=== PATIENT | male | born 1955 | race Caucasian/White ===

== ENCOUNTER 2022-11-22 11:41 | Inpatient (IN) | payer MEDICARE, OTHER ==
[2022-11-22 12:41] LABS: Hemoglobin 9.4 g/dL (13.5-17.5); Mean Corpuscular HGB CONC 34.7 g/dL (32.0-36.0); Mean Corpuscular Hemoglobin 35.6 pg (27.0-33.0); Mean Corpuscular Volume 102.7 fl (81.2-95.1); Mean Platelet Volume 11.3 fl (7.4-10.4); Platelet Count 95 10x3/uL (150-450); RBC Distribution Width 14.6 % (11.5-14.5); Red Blood Cell (RBC) Count 2.64 10x6/uL (4.32-5.72); White Blood Cell (WBC) Count 5.1 10x3/uL (3.5-10.5)
[2022-11-22 12:52] LABS: ALT (SGPT) 10 U/L (8-55); AST (SGOT) 18 U/L (5-34); Albumin 2.8 g/dL (3.4-4.8); Alkaline Phosphatase 49 U/L (40-110); Anion Gap 24 mmol/L (10-20); BUN (Urea Nitrogen) 15 mg/dL (8.4-25.7); Bilirubin, Total 0.6 mg/dL (0.2-1.2); Calc. Creatinine Clearance 0 mL/min (70-130); Calcium 7.7 mg/dL (7.8-10.44); Carbon Dioxide 21 mmol/L (23-31); Chloride 88 mmol/L (98-107); Estimated GFR 94; Globulin 2.9 g/dL (2.4-3.5); Glucose 105 mg/dL (80-115); Lipase 48 U/L (8-78); Protein, Total 5.7 g/dL (5.8-8.1); Sodium 130 mmol/L (136-145)
[2022-11-22 12:55] LABS: Acetaminophen Less than 10.0 mcg/mL (10.0-30.0); Alcohol Less than 10 mg/dL (Less than 10); Salicylate Less than 8.0 mg/dL (15.0-30.0)
[2022-11-22 13:03] LABS: MDiff Complete? YES
[2022-11-22 13:08] LABS: Band 15 % (5-11); Lymphocytes 7 % (21-51); Monocytes 2 % (0-10); Neutrophil 76 % (42-75)
[2022-11-22 13:09] LABS: Platelet Morphology Comment Appears Decreased
[2022-11-22 13:14] LABS: Macrocytosis SLIGHT = 6-15 cells (100X) (0-5/hpf)
[2022-11-22 13:15] LABS: Magnesium 0.9 mg/dL (1.6-2.6); Potassium 2.6 mmol/L (3.5-5.1)
[2022-11-22] MEDS ORDERED: Magnesium 2 GM/50 ML BAG (IN WATER) ONE (13:29)
[2022-11-22] MEDS ORDERED: Potassium Chloride 20 MEQ TAB ONE (13:29)
[2022-11-22] MEDS ORDERED: Lorazepam 2 MG/ML VIAL ONE (13:59)
[2022-11-22 15:19] LABS: Lactic Acid 2.2 mmol/L (0.5-2.2)
[2022-11-22] MEDS ORDERED: Lorazepam 2 MG/ML VIAL IM PRN (15:59)
[2022-11-22] MEDS ORDERED: Acetaminophen 650 MG Suppository PR PRN (15:59)
[2022-11-22] MEDS ORDERED: Lorazepam 1 MG TAB PO PRN (15:59)
[2022-11-22] MEDS ORDERED: Ondansetron PF 4 MG/2 ML Vial IVP PRN (15:59)
[2022-11-22] MEDS ORDERED: Electrolyte Replacement Protocol 1 EACH FS SCH (16:00)
[2022-11-22 16:32] VITALS: BMI 28.9
[2022-11-22 16:51] LABS: Bilirubin 1+ (Negative); Blood, Urine 150 (Negative); Clarity Cloudy (Clear); Glucose, Urine (Dipstick) Normal (Negative); Ketone, Urine 150 mg/dL (Negative); Leukocyte 500 (Negative); Nitrite Negative (Negative); Protein, Urine (Dipstick) 100 mg/dl (Neg-Trace); Specific Gravity, Urine 1.015 (1.005-1.030)
[2022-11-22 16:51] LABS: Troponin I 0.011 ng/mL (< 0.028)
[2022-11-22 17:01] LABS: Bacteria/HPF 3+ HPF (None Seen); Mucous/LPF 1+ LPF (<2+); Squamous Epithelial 0-3 HPF (0-3); WBC/HPF Greater Than 50 HPF (0-3)
[2022-11-22 17:55] LABS: Phosphorus 1.4 mg/dL (2.3-4.7)
[2022-11-22 18:01] LABS: Syphilis Antibody Nonreactive (Nonreactive); Syphilis Antibody Index 0.11 S/CO (<1.00 Non-Reactive)
[2022-11-22] MEDS ORDERED: Lorazepam 1 MG TAB ONE ×2 (18:37→20:23)
[2022-11-22] MEDS ORDERED: Thiamine HCl 200 MG/2 ML VIAL ONE ×2 (18:38→20:23)
[2022-11-22 18:57] LABS: Anion Gap 20 mmol/L (10-20); BUN (Urea Nitrogen) 13 mg/dL (8.4-25.7); Calc. Creatinine Clearance 110 mL/min (70-130); Calcium 7.8 mg/dL (7.8-10.44); Carbon Dioxide 22 mmol/L (23-31); Chloride 92 mmol/L (98-107); Estimated GFR 96; Glucose 120 mg/dL (80-115); Magnesium 1.7 mg/dL (1.6-2.6); Potassium 2.8 mmol/L (3.5-5.1); Sodium 131 mmol/L (136-145)
[2022-11-22 19:04] LABS: Troponin I Less than 0.010 ng/mL (< 0.028)
[2022-11-22] MEDS ORDERED: ADMIXTURE FEE IVPB SCH (20:00)
[2022-11-22] MEDS ORDERED: SODIUM CHLORIDE IVPB SCH (20:00)
[2022-11-22] MEDS ORDERED: SODIUM PHOSPHATE IVPB SCH (20:00)
[2022-11-22] MEDS ORDERED: Apixaban 5 MG TAB ONE (20:20)
[2022-11-22] MEDS ORDERED: Folic Acid 1 MG TAB PO SCH (21:00)
[2022-11-22] MEDS ORDERED: Multivit, Therapeutic 1 TAB PO SCH (21:00)
[2022-11-22] MEDS ORDERED: Magnesium 2 GM/50 ML(in water) 2 GM in Premix Bag 1 BAG IVPB SCH (21:00)
[2022-11-22] MEDS: Thiamine HCl 200 MG/2 ML VIAL SLOW IVP SCH (21:08)
[2022-11-22] MEDS: Lorazepam 1 MG TAB PO SCH (21:08)
[2022-11-22] MEDS: Apixaban 5 MG TAB PO SCH (21:27)
[2022-11-22] MEDS: Potassium Chloride 20 MEQ TAB PO SCH (22:44)
[2022-11-23] MEDS: Lorazepam 1 MG TAB PO SCH ×5 (05:53→23:12)
[2022-11-23 05:57] LABS: %Basophils 0.7 % (0.0-2.0); %Eosinophils 0.7 % (0.0-6.0); %Lymphocytes 24.8 % (18.0-47.0); %Monocytes 1.4 % (0.0-10.0); %Neutrophils 71.7 % (40.0-75.0); Hemoglobin 8.1 g/dL (13.5-17.5); Mean Corpuscular HGB CONC 34.3 g/dL (32.0-36.0); Mean Corpuscular Hemoglobin 35.7 pg (27.0-33.0); Mean Platelet Volume 11.5 fl (7.4-10.4); Platelet Count 81 10x3/uL (150-450); RBC Distribution Width 14.7 % (11.5-14.5); Red Blood Cell (RBC) Count 2.27 10x6/uL (4.32-5.72); White Blood Cell (WBC) Count 2.8 10x3/uL (3.5-10.5)
[2022-11-23] MEDS ORDERED: Magnesium 2 GM/50 ML(in water) 2 GM in Premix Bag 1 BAG IVPB SCH ×2 (06:00→09:15)
[2022-11-23] MEDS: Potassium Chloride 20 MEQ TAB PO SCH ×2 (06:08→17:27)
[2022-11-23 07:33] LABS: Anion Gap 17 mmol/L (10-20); BUN (Urea Nitrogen) 12 mg/dL (8.4-25.7); Calc. Creatinine Clearance 122 mL/min (70-130); Calcium 7.7 mg/dL (7.8-10.44); Carbon Dioxide 26 mmol/L (23-31); Chloride 94 mmol/L (98-107); Estimated GFR 99; Glucose 106 mg/dL (80-115); Potassium 2.9 mmol/L (3.5-5.1); Sodium 134 mmol/L (136-145)
[2022-11-23 07:34] LABS: Magnesium 1.5 mg/dL (1.6-2.6)
[2022-11-23] MEDS: Folic Acid 1 MG TAB PO SCH (08:44)
[2022-11-23] MEDS: Apixaban 5 MG TAB PO SCH ×2 (08:44→23:12)
[2022-11-23] MEDS: Multivit, Therapeutic 1 TAB PO SCH (08:44)
[2022-11-23] MEDS ORDERED: Potassium Chloride 20 MEQ TAB PO SCH ×2 (09:15→21:00)
[2022-11-23] MEDS ORDERED: Sodium Phosphate 30 MMOL in Sodium Chloride 0.9% 250 ML 250 ML IVPB SCH (09:15)
[2022-11-23 09:23] LABS: Phosphorus 2.3 mg/dL (2.3-4.7)
[2022-11-23] MEDS: cefTRIAXone\\ROCEPHIN 2 GM in Sodium Chloride 0.9% 100 ML IVPB SCH (09:43)
[2022-11-23] MEDS ORDERED: Lorazepam 1 MG TAB PO PRN (16:00)
[2022-11-23 16:14] LABS: Anion Gap 15 mmol/L (10-20); BUN (Urea Nitrogen) 12 mg/dL (8.4-25.7); Calc. Creatinine Clearance 125 mL/min (70-130); Calcium 7.7 mg/dL (7.8-10.44); Carbon Dioxide 28 mmol/L (23-31); Chloride 96 mmol/L (98-107); Estimated GFR 100; Glucose 110 mg/dL (80-115); Magnesium 2.6 mg/dL (1.6-2.6); Phosphorus 3.5 mg/dL (2.3-4.7); Potassium 2.9 mmol/L (3.5-5.1); Sodium 136 mmol/L (136-145)
[2022-11-23] MEDS: Thiamine HCl 200 MG/2 ML VIAL SLOW IVP SCH (17:28)
[2022-11-23 22:51] LABS: Anion Gap 16 mmol/L (10-20); BUN (Urea Nitrogen) 11 mg/dL (8.4-25.7); Calc. Creatinine Clearance 127 mL/min (70-130); Calcium 7.7 mg/dL (7.8-10.44); Carbon Dioxide 25 mmol/L (23-31); Chloride 98 mmol/L (98-107); Estimated GFR 100; Glucose 97 mg/dL (80-115); Sodium 136 mmol/L (136-145)
[2022-11-23] MEDS ORDERED: Lactated Ringer's 1,000 ML IV SCH (23:45)
[2022-11-24 03:52] LABS: #Monocytes 0.1 10x3/uL (0.0-1.1); #Neutrophils 1.6 10x3/uL (1.5-8.4); %Basophils 0.5 % (0.0-2.0); %Lymphocytes 17.5 % (18.0-47.0); %Monocytes 2.9 % (0.0-10.0); %Neutrophils 76.6 % (40.0-75.0); Hemoglobin 7.7 g/dL (13.5-17.5); Mean Corpuscular HGB CONC 34.5 g/dL (32.0-36.0); Mean Corpuscular Hemoglobin 36.3 pg (27.0-33.0); Mean Corpuscular Volume 105.2 fl (81.2-95.1); Mean Platelet Volume 11.7 fl (7.4-10.4); Platelet Count 78 10x3/uL (150-450); Red Blood Cell (RBC) Count 2.12 10x6/uL (4.32-5.72); White Blood Cell (WBC) Count 2.1 10x3/uL (3.5-10.5)
[2022-11-24 04:05] LABS: ALT (SGPT) 11 U/L (8-55); AST (SGOT) 24 U/L (5-34); Albumin 2.2 g/dL (3.4-4.8); Alkaline Phosphatase 51 U/L (40-110); Anion Gap 15 mmol/L (10-20); BUN (Urea Nitrogen) 10 mg/dL (8.4-25.7); Bilirubin, Total 0.2 mg/dL (0.2-1.2); Calc. Creatinine Clearance 123 mL/min (70-130); Calcium 7.5 mg/dL (7.8-10.44); Carbon Dioxide 24 mmol/L (23-31); Chloride 100 mmol/L (98-107); Estimated GFR 100; Globulin 2.6 g/dL (2.4-3.5); Glucose 123 mg/dL (80-115); Potassium 3.3 mmol/L (3.5-5.1); Protein, Total 4.8 g/dL (5.8-8.1); Sodium 136 mmol/L (136-145)
[2022-11-24] MEDS: Lorazepam 1 MG TAB PO SCH ×2 (06:17→12:06)
[2022-11-24] MEDS: Folic Acid 1 MG TAB PO SCH (09:09)
[2022-11-24] MEDS: Multivit, Therapeutic 1 TAB PO SCH (09:09)
[2022-11-24] MEDS: Potassium Chloride 20 MEQ TAB PO SCH ×2 (09:09→17:45)
[2022-11-24] MEDS: Apixaban 5 MG TAB PO SCH ×2 (09:09→20:38)
[2022-11-24] MEDS ORDERED: Sodium Chloride 0.9% 100 ML ONE (10:02)
[2022-11-24] MEDS: cefTRIAXone\\ROCEPHIN 2 GM in Sodium Chloride 0.9% 100 ML IVPB SCH (10:05)
[2022-11-24 10:13] LABS: Magnesium 1.8 mg/dL (1.6-2.6); Phosphorus 2.1 mg/dL (2.3-4.7)
[2022-11-24] MEDS ORDERED: Sodium Phosphate 15 MMOL in Sodium Chloride 0.9% 250 ML 250 ML IVPB SCH (11:15)
[2022-11-24] MEDS ORDERED: Magnesium 2 GM/50 ML(in water) 2 GM in Premix Bag 1 BAG IVPB SCH (14:00)
[2022-11-24 14:22] LABS: Potassium 3.4 mmol/L (3.5-5.1)
[2022-11-24] MEDS ORDERED: Lorazepam 1 MG TAB PO PRN (16:00)
[2022-11-24] MEDS: Thiamine HCl 200 MG/2 ML VIAL SLOW IVP SCH (17:47)
[2022-11-24] MEDS: Lorazepam 0.5 MG TAB PO SCH (18:00)
[2022-11-24] MEDS: Metoprolol Tartrate 25 MG TAB PO SCH (20:38)
[2022-11-25] MEDS: Lorazepam 0.5 MG TAB PO SCH ×3 (02:02→12:49)
[2022-11-25 03:43] LABS: Hemoglobin 7.6 g/dL (13.5-17.5); Mean Corpuscular HGB CONC 33.3 g/dL (32.0-36.0); Mean Corpuscular Volume 108.1 fl (81.2-95.1); Mean Platelet Volume 10.9 fl (7.4-10.4); Platelet Count 67 10x3/uL (150-450); RBC Distribution Width 15.3 % (11.5-14.5); Red Blood Cell (RBC) Count 2.11 10x6/uL (4.32-5.72); White Blood Cell (WBC) Count 1.9 10x3/uL (3.5-10.5)
[2022-11-25 03:45] LABS: MDiff Complete? YES
[2022-11-25 03:56] LABS: ALT (SGPT) 13 U/L (8-55); AST (SGOT) 44 U/L (5-34); Albumin 2.3 g/dL (3.4-4.8); Alkaline Phosphatase 51 U/L (40-110); Anion Gap 12 mmol/L (10-20); BUN (Urea Nitrogen) 8 mg/dL (8.4-25.7); Bilirubin, Total 0.2 mg/dL (0.2-1.2); Calc. Creatinine Clearance 139 mL/min (70-130); Calcium 7.7 mg/dL (7.8-10.44); Carbon Dioxide 26 mmol/L (23-31); Chloride 103 mmol/L (98-107); Estimated GFR 103; Globulin 2.7 g/dL (2.4-3.5); Glucose 100 mg/dL (80-115); Magnesium 1.9 mg/dL (1.6-2.6); Potassium 4.3 mmol/L (3.5-5.1); Sodium 137 mmol/L (136-145)
[2022-11-25 04:40] LABS: Band 3 % (5-11); Eosinophils 1 % (0-10); Lymphocytes 53 % (21-51); Monocytes 1 % (0-10); Neutrophil 42 % (42-75)
[2022-11-25 04:44] LABS: Hypochromia SLIGHT = 6-15 cells (100X) (0-5/hpf); Large Platelets SLIGHT; Macrocytosis SLIGHT = 6-15 cells (100X) (0-5/hpf); Ovalocytes SLIGHT = 2-5 cells (100X) (0-1/hpf); Platelet Morphology Comment Appears Decreased
[2022-11-25] MEDS ORDERED: Magnesium 2 GM/50 ML(in water) 2 GM in Premix Bag 1 BAG IVPB SCH (08:00)
[2022-11-25] MEDS: Apixaban 5 MG TAB PO SCH ×2 (09:28→20:48)
[2022-11-25] MEDS: Magnesium Oxide 400 MG TAB PO SCH (09:28)
[2022-11-25] MEDS: Metoprolol Tartrate 25 MG TAB PO SCH ×2 (09:28→20:48)
[2022-11-25] MEDS: Multivit, Therapeutic 1 TAB PO SCH (09:28)
[2022-11-25] MEDS: cefTRIAXone\\ROCEPHIN 2 GM in Sodium Chloride 0.9% 100 ML IVPB SCH (09:29)
[2022-11-25] MEDS: Folic Acid 1 MG TAB PO SCH (09:29)
[2022-11-25 11:42] LABS: Phosphorus 1.7 mg/dL (2.3-4.7)
[2022-11-25] MEDS: PHOS-NAK 1 PKT PACK PO SCH ×2 (12:49→18:03)
[2022-11-25] MEDS: Thiamine 100 MG TAB PO SCH (18:02)
[2022-11-26 04:55] LABS: Hemoglobin 7.9 g/dL (13.5-17.5); Mean Corpuscular HGB CONC 33.1 g/dL (32.0-36.0); Mean Corpuscular Hemoglobin 35.4 pg (27.0-33.0); Mean Corpuscular Volume 107.2 fl (81.2-95.1); Platelet Count 76 10x3/uL (150-450); RBC Distribution Width 15.3 % (11.5-14.5); Red Blood Cell (RBC) Count 2.23 10x6/uL (4.32-5.72); White Blood Cell (WBC) Count 2.2 10x3/uL (3.5-10.5)
[2022-11-26 05:06] LABS: ALT (SGPT) 23 U/L (8-55); AST (SGOT) 74 U/L (5-34); Albumin 2.3 g/dL (3.4-4.8); Alkaline Phosphatase 51 U/L (40-110); Anion Gap 10 mmol/L (10-20); BUN (Urea Nitrogen) 5 mg/dL (8.4-25.7); Bilirubin, Total 0.3 mg/dL (0.2-1.2); Calc. Creatinine Clearance 143 mL/min (70-130); Calcium 7.9 mg/dL (7.8-10.44); Carbon Dioxide 28 mmol/L (23-31); Chloride 102 mmol/L (98-107); Estimated GFR 104; Globulin 2.8 g/dL (2.4-3.5); Glucose 98 mg/dL (80-115); Magnesium 1.7 mg/dL (1.6-2.6); Phosphorus 1.7 mg/dL (2.3-4.7); Potassium 4.8 mmol/L (3.5-5.1); Protein, Total 5.1 g/dL (5.8-8.1); Sodium 135 mmol/L (136-145)
[2022-11-26 05:56] LABS: Eosinophils 7 % (0-10); Lymphocytes 35 % (21-51); Monocytes 9 % (0-10); Reactive Lymphocytes 1 % (0-10)
[2022-11-26 05:59] LABS: Microcytosis SLIGHT = 6-15 cells (100X) (0-5/hpf)
[2022-11-26 06:00] LABS: Macrocytosis SLIGHT = 6-15 cells (100X) (0-5/hpf); Ovalocytes SLIGHT = 2-5 cells (100X) (0-1/hpf); Platelet Morphology Comment Appears Decreased
[2022-11-26 06:17] LABS: MDiff Complete? YES; Neutrophil 48 % (42-75)
[2022-11-26] MEDS ORDERED: Magnesium 2 GM/50 ML(in water) 2 GM in Premix Bag 1 BAG IVPB SCH ×2 (08:00→17:00)
[2022-11-26] MEDS ORDERED: PHOS-NAK 1 PKT PACK PO SCH (08:00)
[2022-11-26] MEDS ORDERED: Sodium Phosphate 30 MMOL in Sodium Chloride 0.9% 250 ML 250 ML IVPB SCH (10:00)
[2022-11-26] MEDS: Multivit, Therapeutic 1 TAB PO SCH (10:35)
[2022-11-26] MEDS: Apixaban 5 MG TAB PO SCH ×2 (10:35→20:58)
[2022-11-26] MEDS: Folic Acid 1 MG TAB PO SCH (10:35)
[2022-11-26] MEDS: Metoprolol Tartrate 25 MG TAB PO SCH ×2 (10:36→20:58)
[2022-11-26] MEDS: cefTRIAXone\\ROCEPHIN 2 GM in Sodium Chloride 0.9% 100 ML IVPB SCH (10:38)
[2022-11-26] MEDS: Magnesium Oxide 400 MG TAB PO SCH (10:44)
[2022-11-26] MEDS: Thiamine 100 MG TAB PO SCH (19:25)
[2022-11-27 04:44] LABS: Mean Corpuscular HGB CONC 32.9 g/dL (32.0-36.0); Mean Corpuscular Hemoglobin 35.1 pg (27.0-33.0); Mean Corpuscular Volume 106.6 fl (81.2-95.1); Mean Platelet Volume 11.8 fl (7.4-10.4); Platelet Count 92 10x3/uL (150-450); RBC Distribution Width 15.6 % (11.5-14.5); Red Blood Cell (RBC) Count 2.28 10x6/uL (4.32-5.72); White Blood Cell (WBC) Count 2.5 10x3/uL (3.5-10.5)
[2022-11-27 04:50] LABS: MDiff Complete? YES
[2022-11-27 04:56] LABS: ALT (SGPT) 30 U/L (8-55); AST (SGOT) 77 U/L (5-34); Albumin 2.4 g/dL (3.4-4.8); Alkaline Phosphatase 54 U/L (40-110); Anion Gap 15 mmol/L (10-20); BUN (Urea Nitrogen) 6 mg/dL (8.4-25.7); Bilirubin, Total 0.3 mg/dL (0.2-1.2); Calc. Creatinine Clearance 131 mL/min (70-130); Carbon Dioxide 23 mmol/L (23-31); Chloride 102 mmol/L (98-107); Estimated GFR 101; Globulin 2.8 g/dL (2.4-3.5); Glucose 98 mg/dL (80-115); Potassium 4.3 mmol/L (3.5-5.1); Protein, Total 5.2 g/dL (5.8-8.1); Sodium 136 mmol/L (136-145)
[2022-11-27 05:54] LABS: Eosinophils 1 % (0-10); Lymphocytes 45 % (21-51); Monocytes 13 % (0-10); Neutrophil 41 % (42-75)
[2022-11-27 05:58] LABS: Anisocytosis SLIGHT = 6-15 cells (100X) (0-5/hpf); Hypochromia SLIGHT = 6-15 cells (100X) (0-5/hpf); Macrocytosis SLIGHT = 6-15 cells (100X) (0-5/hpf); Microcytosis SLIGHT = 6-15 cells (100X) (0-5/hpf); Polychromasia SLIGHT = 2-3 cells (100X) (0-2/hpf)
[2022-11-27 06:01] LABS: Platelet Clumps SLIGHT; Platelet Morphology Comment Appears Decreased
[2022-11-27] MEDS ORDERED: Magnesium 2 GM/50 ML(in water) 2 GM in Premix Bag 1 BAG IVPB SCH ×2 (08:00→21:00)
[2022-11-27] MEDS: Thiamine 100 MG TAB PO SCH (08:58)
[2022-11-27] MEDS: cefTRIAXone\\ROCEPHIN 2 GM in Sodium Chloride 0.9% 100 ML IVPB SCH (08:58)
[2022-11-27] MEDS: Multivit, Therapeutic 1 TAB PO SCH (08:58)
[2022-11-27] MEDS: Metoprolol Tartrate 25 MG TAB PO SCH ×2 (08:59→21:25)
[2022-11-27] MEDS: Folic Acid 1 MG TAB PO SCH (08:59)
[2022-11-27] MEDS: Apixaban 5 MG TAB PO SCH ×2 (08:59→21:25)
[2022-11-27] MEDS: Magnesium Oxide 400 MG TAB PO SCH (10:30)
[2022-11-27 15:36] LABS: Magnesium 1.8 mg/dL (1.6-2.6); Phosphorus 3.8 mg/dL (2.3-4.7)
[2022-11-28 04:02] LABS: #Eosinphils 0.1 10x3/uL (0.0-0.5); #Monocytes 0.3 10x3/uL (0.0-1.1); #Neutrophils 1.2 10x3/uL (1.5-8.4); %Basophils 1.4 % (0.0-2.0); %Eosinophils 2.5 % (0.0-6.0); %Monocytes 9.4 % (0.0-10.0); %Neutrophils 42.3 % (40.0-75.0); Mean Corpuscular HGB CONC 32.6 g/dL (32.0-36.0); Mean Corpuscular Volume 107.4 fl (81.2-95.1); Mean Platelet Volume 11.4 fl (7.4-10.4); Platelet Count 116 10x3/uL (150-450); RBC Distribution Width 15.7 % (11.5-14.5); Red Blood Cell (RBC) Count 2.57 10x6/uL (4.32-5.72); White Blood Cell (WBC) Count 2.8 10x3/uL (3.5-10.5)
[2022-11-28 04:11] LABS: ALT (SGPT) 34 U/L (8-55); AST (SGOT) 80 U/L (5-34); Albumin 2.7 g/dL (3.4-4.8); Alkaline Phosphatase 54 U/L (40-110); Anion Gap 14 mmol/L (10-20); BUN (Urea Nitrogen) 6 mg/dL (8.4-25.7); Bilirubin, Total 0.3 mg/dL (0.2-1.2); Calc. Creatinine Clearance 119 mL/min (70-130); Calcium 8.6 mg/dL (7.8-10.44); Carbon Dioxide 24 mmol/L (23-31); Chloride 101 mmol/L (98-107); Estimated GFR 98; Glucose 101 mg/dL (80-115); Potassium 4.8 mmol/L (3.5-5.1); Protein, Total 5.7 g/dL (5.8-8.1); Sodium 134 mmol/L (136-145)
[2022-11-28 04:25] LABS: Anisocytosis SLIGHT = 6-15 cells (100X) (0-5/hpf); Hypochromia SLIGHT = 6-15 cells (100X) (0-5/hpf); Macrocytosis SLIGHT = 6-15 cells (100X) (0-5/hpf)
[2022-11-28 04:26] LABS: Platelet Morphology Comment Appears Decreased
[2022-11-28] MEDS: Metoprolol Tartrate 25 MG TAB PO SCH ×2 (07:58→21:42)
[2022-11-28] MEDS: cefTRIAXone\\ROCEPHIN 2 GM in Sodium Chloride 0.9% 100 ML IVPB SCH (07:58)
[2022-11-28] MEDS: Multivit, Therapeutic 1 TAB PO SCH (07:58)
[2022-11-28] MEDS: Magnesium Oxide 400 MG TAB PO SCH (07:59)
[2022-11-28] MEDS: Apixaban 5 MG TAB PO SCH ×2 (07:59→21:42)
[2022-11-28] MEDS: Thiamine 100 MG TAB PO SCH (07:59)
[2022-11-28] MEDS: Lorazepam 0.5 MG TAB PO PRN (07:59)
[2022-11-28] MEDS: Folic Acid 1 MG TAB PO SCH (07:59)
[2022-11-28 08:51] LABS: Magnesium 2.1 mg/dL (1.6-2.6)
[2022-11-28 08:55] LABS: Iron 69 ug/dL (65-175); Iron Binding Capacity, Total 186 mcg/dL (261-462)
[2022-11-29 04:10] LABS: #Basophils 0.1 10x3/uL (0.0-0.2); #Eosinphils 0.1 10x3/uL (0.0-0.5); #Monocytes 0.3 10x3/uL (0.0-1.1); #Neutrophils 1.5 10x3/uL (1.5-8.4); %Basophils 1.7 % (0.0-2.0); %Lymphocytes 37.6 % (18.0-47.0); %Monocytes 8.4 % (0.0-10.0); %Neutrophils 49.3 % (40.0-75.0); Hemoglobin 8.9 g/dL (13.5-17.5); Mean Corpuscular HGB CONC 32.8 g/dL (32.0-36.0); Mean Corpuscular Hemoglobin 35.6 pg (27.0-33.0); Mean Corpuscular Volume 108.4 fl (81.2-95.1); Mean Platelet Volume 11.5 fl (7.4-10.4); Platelet Count 135 10x3/uL (150-450); RBC Distribution Width 15.8 % (11.5-14.5)
[2022-11-29 04:14] LABS: ALT (SGPT) 36 U/L (8-55); AST (SGOT) 74 U/L (5-34); Albumin 2.7 g/dL (3.4-4.8); Alkaline Phosphatase 56 U/L (40-110); Anion Gap 13 mmol/L (10-20); BUN (Urea Nitrogen) 9 mg/dL (8.4-25.7); Bilirubin, Total 0.4 mg/dL (0.2-1.2); Calc. Creatinine Clearance 113 mL/min (70-130); Calcium 8.6 mg/dL (7.8-10.44); Carbon Dioxide 24 mmol/L (23-31); Chloride 102 mmol/L (98-107); Estimated GFR 97; Glucose 98 mg/dL (80-115); Phosphorus 3.4 mg/dL (2.3-4.7); Potassium 4.9 mmol/L (3.5-5.1); Protein, Total 5.7 g/dL (5.8-8.1); Sodium 134 mmol/L (136-145)
[2022-11-29 04:30] LABS: Anisocytosis SLIGHT = 6-15 cells (100X) (0-5/hpf); Hypochromia SLIGHT = 6-15 cells (100X) (0-5/hpf); Macrocytosis SLIGHT = 6-15 cells (100X) (0-5/hpf)
[2022-11-29 04:31] LABS: Platelet Morphology Comment Appears Decreased
[2022-11-29] MEDS ORDERED: Magnesium 2 GM/50 ML(in water) 2 GM in Premix Bag 1 BAG IVPB SCH (08:00)
[2022-11-29] MEDS: Thiamine 100 MG TAB PO SCH (08:27)
[2022-11-29] MEDS: Metoprolol Tartrate 25 MG TAB PO SCH ×2 (08:27→20:10)
[2022-11-29] MEDS: Apixaban 5 MG TAB PO SCH ×2 (08:27→20:10)
[2022-11-29] MEDS: Multivit, Therapeutic 1 TAB PO SCH (08:27)
[2022-11-29] MEDS: Magnesium Oxide 400 MG TAB PO SCH (08:28)
[2022-11-29] MEDS: Lorazepam 0.5 MG TAB PO PRN (08:28)
[2022-11-29] MEDS: Folic Acid 1 MG TAB PO SCH (08:28)
[2022-11-29 17:00] LABS: Phosphorus 3.4 mg/dL (2.3-4.7)
[2022-11-30 04:57] LABS: #Basophils 0.1 10x3/uL (0.0-0.2); #Eosinphils 0.1 10x3/uL (0.0-0.5); #Monocytes 0.4 10x3/uL (0.0-1.1); #Neutrophils 2.1 10x3/uL (1.5-8.4); %Basophils 1.6 % (0.0-2.0); %Eosinophils 1.3 % (0.0-6.0); %Lymphocytes 33.9 % (18.0-47.0); %Neutrophils 53.4 % (40.0-75.0); Hemoglobin 9.1 g/dL (13.5-17.5); Mean Corpuscular HGB CONC 32.2 g/dL (32.0-36.0); Mean Corpuscular Hemoglobin 34.7 pg (27.0-33.0); Mean Platelet Volume 11.2 fl (7.4-10.4); Platelet Count 160 10x3/uL (150-450); RBC Distribution Width 15.7 % (11.5-14.5); Red Blood Cell (RBC) Count 2.62 10x6/uL (4.32-5.72); White Blood Cell (WBC) Count 3.9 10x3/uL (3.5-10.5)
[2022-11-30 05:04] LABS: ALT (SGPT) 41 U/L (8-55); AST (SGOT) 83 U/L (5-34); Alkaline Phosphatase 68 U/L (40-110); Anion Gap 15 mmol/L (10-20); BUN (Urea Nitrogen) 9 mg/dL (8.4-25.7); Bilirubin, Total 0.4 mg/dL (0.2-1.2); Calc. Creatinine Clearance 106 mL/min (70-130); Calcium 8.9 mg/dL (7.8-10.44); Carbon Dioxide 24 mmol/L (23-31); Chloride 102 mmol/L (98-107); Estimated GFR 95; Globulin 3.2 g/dL (2.4-3.5); Glucose 101 mg/dL (80-115); Potassium 5.2 mmol/L (3.5-5.1); Protein, Total 6.2 g/dL (5.8-8.1); Sodium 136 mmol/L (136-145)
[2022-11-30] MEDS: Folic Acid 1 MG TAB PO SCH (10:16)
[2022-11-30] MEDS: Metoprolol Tartrate 25 MG TAB PO SCH ×2 (10:16→21:34)
[2022-11-30] MEDS: Multivit, Therapeutic 1 TAB PO SCH (10:18)
[2022-11-30] MEDS: Magnesium Oxide 400 MG TAB PO SCH (10:19)
[2022-11-30] MEDS: Apixaban 5 MG TAB PO SCH ×2 (10:19→21:34)
[2022-11-30] MEDS: Thiamine 100 MG TAB PO SCH (21:36)
[2022-12-01 05:07] LABS: Anion Gap 14 mmol/L (10-20); BUN (Urea Nitrogen) 11 mg/dL (8.4-25.7); Calc. Creatinine Clearance 105 mL/min (70-130); Calcium 9.2 mg/dL (7.8-10.44); Carbon Dioxide 23 mmol/L (23-31); Chloride 103 mmol/L (98-107); Estimated GFR 95; Glucose 97 mg/dL (80-115); Potassium 4.8 mmol/L (3.5-5.1); Sodium 135 mmol/L (136-145)
[2022-12-01] MEDS: Folic Acid 1 MG TAB PO SCH (09:57)
[2022-12-01] MEDS: Metoprolol Tartrate 25 MG TAB PO SCH ×2 (09:57→20:21)
[2022-12-01] MEDS: Magnesium Oxide 400 MG TAB PO SCH (09:58)
[2022-12-01] MEDS: Apixaban 5 MG TAB PO SCH ×2 (09:58→20:21)
[2022-12-01] MEDS: Multivit, Therapeutic 1 TAB PO SCH (09:58)
[2022-12-01] MEDS: Thiamine 100 MG TAB PO SCH (17:15)
[2022-12-01] MEDS: Lorazepam 0.5 MG TAB PO PRN (17:42)
[2022-12-01] MEDS ORDERED: Sterile Water 10 ML VIAL FS PRN (20:15)
[2022-12-01] MEDS ORDERED: Ziprasidone 20 MG VIAL IM SCH (20:15)
[2022-12-02] MEDS: Metoprolol Tartrate 25 MG TAB PO SCH ×2 (08:36→20:34)
[2022-12-02] MEDS: Multivit, Therapeutic 1 TAB PO SCH (08:37)
[2022-12-02] MEDS: Apixaban 5 MG TAB PO SCH ×2 (08:37→20:34)
[2022-12-02] MEDS: Folic Acid 1 MG TAB PO SCH (08:37)
[2022-12-02] MEDS: Magnesium Oxide 400 MG TAB PO SCH (08:37)
[2022-12-02] MEDS: Thiamine 100 MG TAB PO SCH (17:32)
[2022-12-03] MEDS: Multivit, Therapeutic 1 TAB PO SCH (08:04)
[2022-12-03] MEDS: Metoprolol Tartrate 25 MG TAB PO SCH ×2 (08:04→21:32)
[2022-12-03] MEDS: Apixaban 5 MG TAB PO SCH ×2 (08:04→21:32)
[2022-12-03] MEDS: Folic Acid 1 MG TAB PO SCH (08:04)
[2022-12-03] MEDS: Magnesium Oxide 400 MG TAB PO SCH (08:05)
[2022-12-03] MEDS: Thiamine 100 MG TAB PO SCH (16:55)
[2022-12-03] MEDS ORDERED: Melatonin 3 MG TAB PO PRN (22:01)
[2022-12-04 04:41] LABS: Hemoglobin 8.9 g/dL (13.5-17.5); Mean Corpuscular HGB CONC 32.4 g/dL (32.0-36.0); Mean Corpuscular Hemoglobin 35.5 pg (27.0-33.0); Mean Corpuscular Volume 109.6 fl (81.2-95.1); Mean Platelet Volume 11.2 fl (7.4-10.4); Platelet Count 183 10x3/uL (150-450); RBC Distribution Width 15.5 % (11.5-14.5); Red Blood Cell (RBC) Count 2.51 10x6/uL (4.32-5.72); White Blood Cell (WBC) Count 4.7 10x3/uL (3.5-10.5)
[2022-12-04 04:55] LABS: Anion Gap 14 mmol/L (10-20); BUN (Urea Nitrogen) 17 mg/dL (8.4-25.7); Calc. Creatinine Clearance 93 mL/min (70-130); Calcium 9.1 mg/dL (7.8-10.44); Carbon Dioxide 23 mmol/L (23-31); Chloride 104 mmol/L (98-107); Estimated GFR 86; Glucose 105 mg/dL (80-115); Potassium 4.7 mmol/L (3.5-5.1); Sodium 136 mmol/L (136-145)
[2022-12-04] MEDS: Metoprolol Tartrate 25 MG TAB PO SCH ×2 (09:05→21:05)
[2022-12-04] MEDS: Magnesium Oxide 400 MG TAB PO SCH (09:05)
[2022-12-04] MEDS: Multivit, Therapeutic 1 TAB PO SCH (09:05)
[2022-12-04] MEDS: Apixaban 5 MG TAB PO SCH ×2 (09:05→21:05)
[2022-12-04] MEDS: Folic Acid 1 MG TAB PO SCH (09:05)
[2022-12-04] MEDS: Thiamine 100 MG TAB PO SCH (18:06)
[2022-12-04] MEDS ORDERED: traZODone HCl 50 MG TAB PO SCH (21:00)
[2022-12-05] MEDS: Magnesium Oxide 400 MG TAB PO SCH (09:36)
[2022-12-05] MEDS: Folic Acid 1 MG TAB PO SCH (09:36)
[2022-12-05] MEDS: Metoprolol Tartrate 25 MG TAB PO SCH (09:36)
[2022-12-05] MEDS: Multivit, Therapeutic 1 TAB PO SCH (09:36)
[2022-12-05] MEDS: Apixaban 5 MG TAB PO SCH (09:36)
[2022-12-05 11:55] VITALS: BP 105/73; TEMP 99.1
== END 2022-12-05 14:04 | disposition swing bed (61) | DRG 641 ==
LOC: CSHERS 11:41 → CSHERHOLD 14:12 → CSHTELE 22:25
PROVIDERS: ADMIT Internal Medicine; ATTEND Internal Medicine
DX: E87.6 Hypokalemia (principal); F10.239 Alcohol dependence with withdrawal, unspecified; I48.91 Unspecified atrial fibrillation; E87.1 Hypo-osmolality and hyponatremia; E87.20 Acidosis, unspecified; R53.1 Weakness; E83.42 Hypomagnesemia; D69.6 Thrombocytopenia, unspecified; E66.9 Obesity, unspecified; Z68.28 Body mass index [BMI] 28.0-28.9, adult; E83.39 Other disorders of phosphorus metabolism; D64.9 Anemia, unspecified
CPT/HCPCS: 36415; 36416; 70450; 71045; 80048; 80053; 80307; 81003; 81015; 82140; 82728; 83540; 83550; 83605; 83690; 83735; 83880; 84100; 84443; 84484; 85025; 85027; 86780; 93005; 93010; 93306; 94760; 96365; 96366; 96375; 97139; J0696; J2060; J3411; J3475; J3490; J7050; J7120

== ENCOUNTER 2024-05-22 07:50 | Day surgery (SDC) | payer MEDICARE ==
[2024-05-22 08:56] VITALS: BP 112/61; TEMP 98.4
== END 2024-05-22 09:55 | disposition home or self-care (01) ==
LOC: CSHSDC 07:50
PROVIDERS: ATTEND Specialist
DX: I48.4 Atypical atrial flutter (principal); I35.1 Nonrheumatic aortic (valve) insufficiency; I10 Essential (primary) hypertension; I45.2 Bifascicular block; F10.10 Alcohol abuse, uncomplicated; Z79.01 Long term (current) use of anticoagulants; Z79.899 Other long term (current) drug therapy; Z53.9 Procedure and treatment not carried out, unspecified reason
CPT/HCPCS: 93005; 93010